=== PATIENT | male | born 1950 | race Caucasian/White ===

== ENCOUNTER 2018-09-23 12:35 | Outpatient (RCR) | payer MEDICARE | END 2018-10-01 | LOC: WCC 12:35 | PROVIDERS: ATTEND Plastic Surgery | DX: T81.30XA Disruption of wound, unspecified, initial encounter (principal); Y83.8 Other surgical procedures as the cause of abnormal reaction of the patient, or of later complication, without mention of misadventure at the time of the procedure ==